=== PATIENT | female | born 1950 | race Caucasian/White ===

== ENCOUNTER 2024-05-15 18:17 | Observation (INO) | payer BC ==
[2024-05-15 19:18] LABS: HEMATOCRIT 36.7 % (32.4-45.2); HEMOGLOBIN 11.6 G/dL (10.7-15.3); MCH 27.8 pg (25.7-33.7); MCHC 31.7 g/dl (32.0-36.0); MEAN CELL VOLUME 87.7 fl (80-96); MEAN PLT VOLUME 7.9 fl (7.5-11.1); RBC 4.18 10^6/uL (3.60-5.2); RDW 15.5 % (11.6-15.6); WHITE BLOOD COUNT 7.1 10^3/uL (4.0-10.8)
[2024-05-15 19:35] LABS: INR 0.98 (0.83-1.09); PROTHROMBIN TIME (PATIENT) 11.2 SEC (9.7-13.0)
[2024-05-15 19:38] LABS: ACTIVATED PTT 38.7 SECONDS (25.2-36.5)
[2024-05-15 19:41] LABS: PLATELET ESTIMATE ADEQUATE
[2024-05-15 19:45] LABS: ALBUMIN 4.7 g/dl (3.4-5.0); BILIRUBIN,TOTAL 0.7 mg/dl (0.2-1); CALCIUM 10.8 mg/dl (8.5-10.1); CREATININE 1.2 mg/dl (0.6-1.3); TOT PROT 7.7 g/dl (6.4-8.2)
[2024-05-15 23:26] VITALS: RESP 16
[2024-05-16] MEDS ORDERED: MECLIZINE HCL 25 MG TABLET (FP) PO PRN (02:35)
[2024-05-16] MEDS: SODIUM CHLORIDE 0.45% 1,000 ML IV SCH (02:55)
[2024-05-16 05:53] VITALS: TEMP 98.2
[2024-05-16 06:47] VITALS: BMI 26.9
[2024-05-16] MEDS: LEVOTHYROXINE NA 50 MCG TABLET (FP) PO SCH (06:51)
[2024-05-16] MEDS: POLYETHYLENE GLYCOL (HEALTHYLAX) 3350 17 GM PACKET PO SCH ×2 (06:51→10:06)
[2024-05-16 07:27] VITALS: BP 136/72; PULSE 70
[2024-05-16] MEDS: PANTOPRAZOLE 40 MG TABLET PO SCH (08:34)
[2024-05-16 09:10] LABS: CALCIUM 9.5 mg/dl (8.5-10.1); MAGNESIUM 2.2 mg/dL (1.8-2.4); PHOSPHOROUS 4.3 (2.5-4.9); POTASSIUM 4.1 mmol/L (3.5-5.1)
[2024-05-16] MEDS: valACYclovir HCL 500 MG TABLET (FP) PO SCH (09:54)
[2024-05-16] MEDS ORDERED: PANTOPRAZOLE SOD 40 MG SUSPENSION PACKET PO SCH (10:00)
[2024-05-16] MEDS: SENNOSIDES 8.6MG TABLET (FP) PO SCH (10:06)
[2024-05-16] MEDS: amLODIPine BESYLATE 10 MG TABLET (FP) PO SCH (11:01)
[2024-05-16] MEDS: ACETAMINOPHEN 325 MG TABLET (FP) PO PRN (11:16)
[2024-05-16 13:13] LABS: BASO % 0.7 % (0-2.0); EOS % 3.7 % (0-4.5); HEMATOCRIT 29.9 % (32.4-45.2); HEMOGLOBIN 9.8 GM/dL (10.7-15.3); LYMPH % 34.4 % (8-40); MCHC 32.7 g/dl (32.0-36.0); MEAN CELL VOLUME 85.6 fl (80-96); MONO % 12.1 % (3.8-10.2); NEUT % 49.1 % (42.8-82.8); PLATELET COUNT 300 10^3/uL (134-434); RBC 3.49 M/mm3 (3.60-5.2); RDW 15.3 % (11.6-15.6)
[2024-05-16] MEDS ORDERED: DOCUSATE SODIUM 100 MG CAPSULE (FP) PO SCH (22:00)
== END 2024-05-16 13:44 | disposition home or self-care (01) ==
LOC: FER 18:17 → FM/S 05-16 02:11
PROVIDERS: ADMIT Internal Medicine
PROC: 3E0337Z Introduction of Electrolytic and Water Balance Substance into Peripheral Vein, Percutaneous Approach (ICD-10-PCS; principal; 2024-05-16)
DX: K51.80 Other ulcerative colitis without complications (principal); R42 Dizziness and giddiness; E03.9 Hypothyroidism, unspecified; I10 Essential (primary) hypertension; E78.5 Hyperlipidemia, unspecified; D68.2 Hereditary deficiency of other clotting factors; Z91.040 Latex allergy status; Z88.8 Allergy status to other drugs, medicaments and biological substances
CPT/HCPCS: 36415; 71046-TC-FY; 74176-TC; 80048; 80053; 81003; 81015; 83735; 83880; 84100; 84439; 84443; 84484; 85025; 85027; 85379; 85610; 85730; 86850; 86900; 86901; 87086; 93005; 93970-TC; 96360; 99285-25; G0378